=== PATIENT | male | born 1990 | race Caucasian/White ===

== ENCOUNTER 2024-05-17 18:29 | Emergency (ER) | payer BC, SELFPAY ==
--- NOTE | ~2024-05-17 | XR_ITS ---
XR chest 2V Ordering provider: Emma Parra MD History: 33 years Male with . chest pain . Comparison: None. FINDINGS: MEDIASTINUM: The cardiac silhouette is not enlarged. LUNGS: No infiltrates, effusions or pneumothorax. OTHER: No free air under the diaphragm. IMPRESSION: No acute cardiopulmonary pathology. Reviewed, dictated and finalized at location A.
--- NOTE | 2024-05-17 18:32 | ECG_ITS ---
Test Date: 2024-05-17 18:46:44 Measurements Intervals [place] Rate: 77 P: 52 OK: 228 QRS: 27 QRSD: 102 T: 42 QT: 364 QTc: 414 Interpretive Statements SINUS RHYTHM WITH FIRST DEGREE AV BLOCK DELAYED PRECORDIAL R/S TRANSITION BORDERLINE ECG No previous ECG available for comparison Electronically Signed On 05-17-2024 20:25:46 CDT by Yung Rodriguez D.O.
[2024-05-17 18:45] VITALS: BP 128/76; PULSE 84; RESP 23; O2SAT 98
[2024-05-17] MEDS: ASPIRIN 81 MG CHEWABLE TABLET 324 MG PO (18:57)
[2024-05-17 18:59] LABS: Basophils Absolute Auto 0.1 K/mm3 (0.0-0.1); Basophils Percent Auto 0.7 % (0.2-1.2); Eosinophils Absolute Auto 0.1 K/mm3 (0-0.3); Hematocrit 45.2 % (42.0-52.0); Hemoglobin 16.3 g/dL (14.0-18.0); Immature Granulocyte Absolute 0.02 K/mm3 (0.00-0.031); Immature Granulocyte Percent A 0.3 % (0-0.5); Lymphocytes Absolute Auto 2.31 K/mm3 (0.9-3.2); Lymphocytes Percent Auto 30.1 % (18.3-44.2); Mean Corpuscular HGB Conc 36.1 g/dl (32-36); Mean Corpuscular Hemoglobin 30.9 pg (26-34); Mean Corpuscular Volume 85.8 fl (80-100); Mean Platelet Volume 9.1 fl (7.4-10.4); Monocytes Absolute Auto 0.5 K/mm3 (0.1-0.6); Monocytes Percent Auto 6.6 % (2.6-8.5); Neutrophils Absolute Auto 4.7 K/mm3 (1.3-6.7); Neutrophils Percent Auto 61.3 % (45.5-73.1); Platelet Count Result 264 k/mm3 (150-375); Red Blood Count 5.27 M/mm3 (4.6-6.20); White Blood Count 7.7 K/mm3 (4.5-10.0)
[2024-05-17 19:00] VITALS: PULSE 73; RESP 21; O2SAT 96
[2024-05-17 19:01] VITALS: BP 115/79; PULSE 75; RESP 17; O2SAT 96
[2024-05-17 19:09] LABS: Alanine Aminotransferase 70 U/L (6-50); Albumin Level 4.5 g/dL (3.5-5.1); Alkaline Phosphatase 77 U/L (38-126); Anion Gap 10 mmol/L (4-12); Aspartate Amino Transferase 34 U/L (17-59); Blood Urea Nitrogen 12 mg/dL (9-20); Calcium 9.2 mg/dL (8.4-10.2); Carbon Dioxide 30 mmol/L (22-30); Chloride 100 mmol/L (98-107); Estimated CRCL calculation 101 ml/min; Estimated Glomerular Filt Rate > 60; Glucose 95 mg/dL (65-110); Lipase 135 U/L (23-300); Potassium 3.8 mmol/L (3.4-5.0); Sodium 140 mmol/L (137-145)
[2024-05-17 19:15] VITALS: PULSE 72; RESP 23; O2SAT 97
[2024-05-17 19:16] VITALS: BP 108/72; PULSE 67; RESP 19; O2SAT 96
[2024-05-17 19:19] LABS: Prothrombin Time 13.2 Seconds (11.1-14.7)
[2024-05-17 19:21] LABS: Troponin I < 0.012 ng/mL (0.000-0.034)
--- NOTE | 2024-05-17 20:13 | ED.CHESTPAIN ---
HPI - Chest Pain General Chief Complaint: Chest Pain Stated Complaint: chest heaviness, feet tingling Time Seen by Provider: 05/17/24 19:05 History of Present Illness HPI narrative: Patient states that since Monday he has had intermittent episodes where he feels like his chest feels tight /heavy, and sometimes he will feel some tingling to bilateral hands and feet with some shortness of breath. Does have history of gastritis and this does feel similar. has not had a panic attack in the past Related Data Allergies Allergy/AdvReac Type Severity Reaction Status Date / Time No Known Allergies Allergy Verified 05/17/24 18:33 Review of Systems Review of Systems: All systems reviewed & are unremarkable except as noted in HPI and below Exam Narrative: EXAMINATION OF ORGAN SYSTEMS/BODY AREAS: Constitutional: Vital signs per nursing GENERAL:[No acute distress, non-toxic appearing.] HEAD: Normal with no signs of head trauma. EYES: EOMI, conjunctiva normal ENT: Hearing grossly intact LUNGS: Nonlabored breathing. clear to auscultation bilaterally HEART: [Regular rate and rhythm] ABD: no abdominal pain EXT: Normal range of motion SKIN: [No rashes or lesions.] NEURO: [Alert and oriented x 3. No gross focal sensory or strength deficits.] PSYCH: Normal affect Course Vital Signs Vital signs: Vital Signs Pulse Rate 84 05/17/24 18:45 Respiratory Rate 23 H 05/17/24 18:45 Blood Pressure 128/76 05/17/24 18:45 Pulse Oximetry 98 05/17/24 18:45 Pulse Rate 67 05/17/24 19:16 Respiratory Rate 19 05/17/24 19:16 Blood Pressure 108/72 05/17/24 19:16 Pulse Oximetry 96 05/17/24 19:16 Oxygen Delivery Room Air 05/17/24 18:48 MDM - Chest Pain MDM Narrative Medical decision making narrative: ED COURSE AND MEDICAL DECISION MAKIN-year-old male presenting with chest pain. EKG done in triage negative for acute ischemic changes. Cardiac workup is initiated. EKG: Performed in triage and interpreted by me. Normal sinus rhythm. Rate 77. Normal axis. [place] normal. QRS duration normal. QTc normal. No pathologic Q waves. No ST segment elevation or depression to suggest acute ischemia. No RV strain pattern. HEART score is 0 with no acute ischemic changes on EKG and negative troponin making ACS unlikely. Wells low risk with negative PERC making PE unlikely. Presentation not consistent with dissection or aneurysm without radiation of pain or pulse deficits. CXR negative for mediastinal widening. No abdominal pain or signs of sepsis that would be concerning for esophageal perforation or mediastinitis. No cardiomegaly or JVD to suggest pericardial effusion/tamponade. HEART Score: [0]. (Risk of major adverse cardiac events over 6 weeks: Score of 0-3 is low risk <2% ; Score of 4-6 is moderate risk ~12-15%; Score of 7-12 is high risk ~50%). - History - [0]. (Not suspicious 0; moderately suspicious 1; highly suspicious 2). - EKG - [0]. (No ST changes 0; non-specific ST/T changes 1; ST depression 2). - Age - [0]. (<45 = 0; 46-65 = 1; >65 = 2). - Risk factors - [0]. (0 factors = 0; 1-2 factors = 1; >2 factors = 2). - Troponin - [0]. (Normal = 0; Indeterminate = 1; High = 2). On repeat evaluation just prior to discharge, the patient is no acute distress. I had a long discussion with the patient and with shared decision making, [he] is comfortable with outpatient management. I will also give him instructions for gastritis and prescription for Pepcid. [He] was given clear return instructions by myself in person as well as on discharge paperwork. Lab Data 05/17/24 18:52 05/17/24 18:52 Labs: Lab Results 05/17/24 Range/Units 18:52 WBC 7.7 (4.5-10.0) K/mm3 RBC 5.27 (4.6-6.20) M/mm3 Hgb 16.3 (14.0-18.0) g/dL Hct 45.2 (42.0-52.0) % MCV 85.8 (80-100) fl MCH 30.9 (26-34) pg MCHC 36.1 H (32-36) g/dl RDW 12.0 (11.5-14.5) % Plt Count 264 (150-375) k/mm3 MPV
[2024-05-17 20:26] VITALS: BP 114/77; PULSE 73; RESP 15; O2SAT 99
== END 2024-05-17 20:28 | disposition home or self-care (01) ==
LOC: ANHED 19:48
PROVIDERS: Student in an Organized Health Care Education/Training Program; Emergency Provider Emergency Medicine; PCP Family Medicine
DX: R07.89 Other chest pain (principal); I44.0 Atrioventricular block, first degree
CPT/HCPCS: 36415; 71046; 80053; 83690; 84484; 85025; 85610; 85730; 93005; 99284; A9270